=== PATIENT | female | born 1985 | race Caucasian/White ===

== ENCOUNTER 2017-10-06 18:30 | Emergency (ER) | END 2017-10-07 01:48 | disposition home or self-care (01) ==

== ENCOUNTER 2017-10-10 20:40 | Inpatient (IN) | END 2017-10-11 18:57 | disposition home or self-care (01) | DRG 395 ==

== ENCOUNTER 2018-10-26 08:38 | Emergency (ER) | payer MEDICAID ==
[~2018-10-26] VITALS: Ht 165.1 cm; Wt 88.2 kg
[~2018-10-26 08:38] MED LIST: IBUP-1542 PO; ONDA4TAB13 PO
[2018-10-26 08:41] VITALS: BP 129/62; PULSE 75; RESP 16; Ht 165.1 cm; Wt 88.2 kg
[2018-10-26] MEDS ORDERED: CEPH-443 PO (09:07)
[2018-10-26] MEDS ORDERED: SULF1TAB31 PO (09:07)
[2018-10-26] MEDS ORDERED: DIPHTH/TET/ACEL PERTUSS (ADULT) 0.5 ML VIAL IM* ONE (09:30)
--- NOTE | 2018-10-26 14:11 | ERD ---
ER Documentation Chief Complaint Chief Complaint right foot wound x 1 week, not diabetic HPI 33-year-old female presenting with a wound to her right foot. Patient has not been putting medications on it and has no fevers. She is not diabetic. She does not remember stepping on anything that caused her irritation. She does not recall her last Tdap shot. Denies other medical problems. Surgical history cholecystectomy. Social history denies ROS All systems reviewed and are negative except as per history of present illness. Medications Home Meds Active Scripts Cephalexin* (Keflex*) 500 Mg Capsule, 500 MG PO QID for 7 Days, CAP Prov:RHIANNON TRINH PA-C 10/26/18 Sulfamethoxazole/Trimethoprim* (Bactrim Ds* Tablet) 1 Each Tablet, 1 TAB PO BID, #14 TAB Prov:RHIANNON TRINH PA-C 10/26/18 Ondansetron Hcl* (Zofran*) 4 Mg Tab, 4 MG PO Q6H PRN for NAUSEA AND OR VOMITING, #10 TAB Prov:MAXI WEISS 10/11/17 Ibuprofen* (Motrin*) 600 Mg Tab, 600 MG PO Q6, #30 TAB Prov:SABAS BLANCO PA-C 10/07/17 Allergies Allergies: Coded Allergies: No Known Allergy (Verified , 12/07/13) PMhx/Soc History of Surgery: Yes (CHOLECYSTECTOMY) Anesthesia Reaction: No Hx Neurological Disorder: No Hx Respiratory Disorders: No Hx Cardiac Disorders: No Hx Psychiatric Problems: No Hx Miscellaneous Medical Probl: No Hx Alcohol Use: No Hx Substance Use: No Hx Tobacco Use: No Smoking Status: Never smoker FmHx Family History: No diabetes, No coronary disease, No other Physical Exam Vitals Vital Signs Date Temp Pulse Resp B/P (MAP) Pulse Ox O2 O2 Flow FiO2 Time Delivery Rate 10/26/18 98.2 75 16 129/62 99 08:41 (84) Physical Exam GENERAL: The patient is well-appearing, well-nourished, in no acute distress CHEST: Clear to auscultation bilaterally. There are no rales, wheezes or rhonchi. HEART: Regular rate and rhythm. No murmurs, clicks, rubs or gallops. EXTREMITIES: Equal pulses bilaterally. There is no peripheral clubbing, cyanosis or edema. No focal swelling or erythema. Full range of motion. Grossly neurovascularly intact. NEUROLOGIC: Alert and oriented. Cranial nerves II through XII intact. Motor strength in all 4 extremities with 5 out of 5 strength. Sensation grossly intact. Normal speech and gait. SKIN: Erythema noted to the right foot x1 week. 2 areas of purulence noted with no fluctuance. No vesicles. Results 24 hrs Current Medications Medications Dose Sig/Rigoberto Start Time Status Last (Trade) Ordered Route PRN Stop Time Admin Dose Reason Admin Diphtheria/ 0.5 ml ONCE ONCE 10/26/18 DC 10/26/18 Tetanus/Acell IM* 09:30 09:13 Pertussis 10/26/18 09:31 (Adacel) Procedures/MDM MDM: 33-year-old female presenting with right foot pain. I have low suspicion for lymphatic infection. Patient is discharged with oral antibiotics and clean with soap and water. Patient is told to return in 2 days for reevaluation. Patient is told symptoms change or worsen to return sooner than 2 days. All questions answered at discharge Departure Diagnosis: Primary Impression: Cellulitis Additional Impression: Foot pain Condition: Stable Patient Instructions: Cellulitis Referrals: [facility] YOU HAVE RECEIVED A MEDICAL SCREENING EXAM AND THE RESULTS INDICATE THAT YOU DO NOT HAVE A CONDITION THAT REQUIRES URGENT TREATMENT IN THE EMERGENCY DEPARTMENT. FURTHER EVALUATION AND TREATMENT OF YOUR CONDITION CAN WAIT UNTIL YOU ARE SEEN IN YOUR DOCTORS OFFICE WITHIN THE NEXT 1-2 DAYS. IT IS YOUR RESPONSIBILITY TO MAKE AN APPOINTMENT FOR FOLOW-UP CARE. IF YOU HAVE A PRIMARY DOCTOR --you should call your primary doctor and schedule an appointment IF YOU DO NOT HAVE A PRIMARY DOCTOR YOU CAN CALL OUR PHYSICIAN REFERRAL HOTLINE AT IF YOU CAN NOT AFFORD TO SEE A PHYSICIAN YOU CAN CHOSE FROM THE FOLLOWING [facility] [address] [facility]. [facility] [address] [facility] [facility] [address] [facility]. [facility] [address] [facility]. [facility] [address] [facility] [facility]. [address] Additional Instructions: FOLLOW UP WITH YOUR PRIMARY CARE PHYSICIAN TOMORROW.Return to this facility if you are not improving as expected. RHIANNON TRINH PA-C Oct 26, 2018 14:11
== END 2018-10-26 09:26 | disposition home or self-care (01) ==
LOC: FTE 08:38
DX: L03.115 Cellulitis of right lower limb (principal); Z23 Encounter for immunization
CPT/HCPCS: 90471; 90715; Z7502